=== PATIENT | male | born 1980 | race Caucasian/White ===

== ENCOUNTER 2023-12-12 09:45 | Outpatient (RCR) | payer BC, SELFPAY | END 2024-04-10 23:59 | disposition home or self-care (01) | PROVIDERS: PCP Family Medicine; Visit Provider Student in an Organized Health Care Education/Training Program | DX: Z02.6 Encounter for examination for insurance purposes (principal); S39.012A Strain of muscle, fascia and tendon of lower back, initial encounter; Z51.89 Encounter for other specified aftercare | CPT/HCPCS: 97110; 97140; 97162 ==